=== PATIENT | female | born 1985 | race Caucasian/White ===

== ENCOUNTER 2018-01-16 18:09 | Emergency (ER) | payer SELFPAY ==
[~2018-01-16] VITALS: Ht 162.6 cm; Wt 54.0 kg
[2018-01-16 18:52] VITALS: BP 104/57
[2018-01-16 19:33] LABS: Basophils # (auto) 0 uL; Basophils % (auto) 0.6 % (0.0-2.0); Eosinophils # (auto) 0.1 uL; Hematocrit 45.6 % (36.0-46.0); Hemoglobin 15.4 g/dL (12.2-16.2); Lymphocytes # (auto) 2.3 uL; Lymphocytes % (auto) 43.2 % (10.0-50.0); Mean Corpuscular Hgb Conc. 33.7 g/dL (32.0-36.0); Mean Corpuscular Volume 92.1 fL (80.0-100.0); Monocytes # (auto) 0.4 uL; Monocytes % (auto) 7.1 % (0.0-12.0); Neutrophils # (auto) 2.5 uL; Neutrophils % (auto) 48.1 % (37.0-80.0); Nucleated Red Blood Cells % 0.2 %; Platelet Count (auto) 245 10^3/uL (140-450); Red Blood Cells 4.95 10^6/uL (4.0-5.20); Red Cell Distribution Width 13.5 % (11.8-14.3); White Blood Cell 5.3 10^3/uL (4.4-10.8)
[2018-01-16 19:56] LABS: Alanine Aminotransferase 14 U/L (13-56); Albumin 4.7 g/dL (3.4-5.0); Alkaline Phosphatase 67 U/L (45-117); Anion Gap 10 (5-15); Aspartate Aminotransferase 10 U/L (15-37); Bilirubin, Total 0.4 mg/dL (0.2-1.0); Blood Urea Nitrogen 11 mg/dL (7-18); Calcium 9.1 mg/dL (8.5-10.1); Carbon Dioxide 25 mmol/L (21-32); Chloride 103 mmol/L (98-107); GFR African American 92 mL/min; GFR Non-African American 76 mL/min; Glucose 89 mg/dL (74-106); Potassium 3.7 mmol/L (3.5-5.1); Sodium 138 mmol/L (136-145); Total Protein 8.8 g/dL (6.4-8.2)
== END 2018-01-17 01:21 | disposition left against medical advice (07) ==
LOC: ER 18:09
DX: R55 Syncope and collapse (principal); Z53.21 Procedure and treatment not carried out due to patient leaving prior to being seen by health care provider
CPT/HCPCS: 36415; 80053; 81001; 81025; 82962; 84484; 85025; 93005

== ENCOUNTER 2018-09-13 14:19 | Emergency (ER) | payer MEDICAID, OTHER ==
[~2018-09-13] VITALS: Ht 162.6 cm; Wt 54.4 kg
[2018-09-13 15:34] VITALS: BP 115/66
== END 2018-09-13 17:01 | disposition home or self-care (01) ==
LOC: ER 14:19
DX: F41.1 Generalized anxiety disorder (principal); Z88.0 Allergy status to penicillin; Z88.6 Allergy status to analgesic agent
CPT/HCPCS: 71046; 93005

== ENCOUNTER 2019-06-16 15:04 | Emergency (ER) | payer MEDICAID ==
[~2019-06-16] VITALS: Ht 162.6 cm; Wt 52.2 kg
[2019-06-16] MEDS ORDERED: KETOROLAC TROMETH 30 MG/ML 1ML VIAL IV ONE (15:45)
[2019-06-16] MEDS ORDERED: METOCLOPRAMIDE HCL 5MG/ml INJ 2ml VIAL IV ONE (15:45)
[2019-06-16] MEDS ORDERED: ACETAMINOPHEN 500 MG TAB PO ONE ×2 (16:15)
[2019-06-16 16:17] LABS: Basophils # (auto) 0.1 uL; Basophils % (auto) 0.8 % (0.0-2.0); Eosinophils # (auto) 0.1 uL; Eosinophils % (auto) 1.2 % (0.0-7.0); Hematocrit 46.2 % (36.0-46.0); Hemoglobin 15.4 g/dL (12.2-16.2); Lymphocytes # (auto) 1.8 uL; Lymphocytes % (auto) 24.9 % (10.0-50.0); Mean Corpuscular Hemoglobin 30.9 pg (28.0-32.0); Mean Corpuscular Hgb Conc. 33.4 g/dL (32.0-36.0); Mean Corpuscular Volume 92.6 fL (80.0-100.0); Monocytes # (auto) 0.5 uL; Monocytes % (auto) 6.4 % (0.0-12.0); Neutrophils # (auto) 4.7 uL; Neutrophils % (auto) 66.7 % (37.0-80.0); Nucleated Red Blood Cells % 0.1 %; Platelet Count (auto) 203 10^3/uL (140-450); Red Blood Cells 4.99 10^6/uL (4.0-5.20); Red Cell Distribution Width 13.7 % (11.8-14.3)
[2019-06-16 16:38] LABS: Calcium 8.5 mg/dL (8.5-10.1); Magnesium 2.2 mg/dL (1.6-2.6); Potassium 3.3 mmol/L (3.5-5.1)
[2019-06-16 16:42] LABS: BUN/Creatinine Ratio 6.2; Bilirubin, Total 0.5 mg/dL (0.2-1.0); Total Protein 7.5 g/dL (6.4-8.2)
[2019-06-16 16:53] LABS: Urine WBC None Seen /hpf (0 - 5)
[2019-06-16 16:59] LABS: Urine Bacteria FEW /hpf (None Seen); Urine Blood Negative /uL (Negative); Urine Mucus FEW (None Seen); Urine Specific Gravity 1.007 (1.001-1.035)
[2019-06-16 18:12] VITALS: BP 107/67
== END 2019-06-16 18:12 | disposition home or self-care (01) ==
LOC: EDBD 15:04 → ER 15:06
DX: R10.9 Unspecified abdominal pain (principal); G89.29 Other chronic pain; M54.9 Dorsalgia, unspecified; L93.0 Discoid lupus erythematosus
CPT/HCPCS: 36415; 74176; 80053; 81001; 83735; 84702; 85025; 96374; 96375; 99284; J1885; J2765

== ENCOUNTER 2019-11-14 08:44 | Inpatient (IN) | payer MEDICAID, SELFPAY ==
[~2019-11-14] VITALS: Ht 162.6 cm; Wt 57.0 kg
[2019-11-14 10:47] LABS: Basophils # (auto) 0 10 ^3/uL (0-0.2); Basophils % (auto) 0.2 % (0.0-2.0); Eosinophils # (auto) 0.2 10 ^3/uL (0-0.8); Eosinophils % (auto) 3.8 % (0.0-7.0); Hematocrit 43.5 % (36.0-46.0); Hemoglobin 15.1 g/dL (12.2-16.2); Lymphocytes % (auto) 18.8 % (10.0-50.0); Mean Corpuscular Hemoglobin 31.5 pg (28.0-32.0); Mean Corpuscular Hgb Conc. 34.7 g/dL (32.0-36.0); Mean Corpuscular Volume 90.8 fL (80.0-100.0); Monocytes # (auto) 0.5 10 ^3/uL (0-1.3); Monocytes % (auto) 9.4 % (0.0-12.0); Neutrophils # (auto) 3.7 10 ^3/uL (1.6-8.6); Neutrophils % (auto) 67.8 % (37.0-80.0); Nucleated Red Blood Cells % 0.3 %; Platelet Count (auto) 228 10^3/uL (140-450); White Blood Cell 5.4 10^3/uL (4.4-10.8)
[2019-11-14 10:59] LABS: Albumin 3.8 g/dL (3.4-5.0); Calcium 9.7 mg/dL (8.5-10.1); Potassium 3.9 mmol/L (3.5-5.1)
[2019-11-14 11:02] LABS: BUN/Creatinine Ratio 11.4; Bilirubin, Total 0.8 mg/dL (0.2-1.0); Total Protein 8.2 g/dL (6.4-8.2)
[2019-11-14] MEDS ORDERED: AZITHROMYCIN 500MG/ 250ML 250 ML IV ONE (11:30)
[2019-11-14] MEDS ORDERED: OSELTAMIVIR 75 MG CAP PO ONE (11:30)
[2019-11-14 12:32] LABS: Urine Bacteria NONE SEEN /hpf (None Seen); Urine Blood Negative /uL (Negative); Urine Specific Gravity 1.004 (1.001-1.035); Urine WBC <1 /hpf (0 - 5)
[2019-11-14] MEDS ORDERED: ALBUTEROL SULF HFA 90MCG INH 200DOSE IN PRN (15:00)
[2019-11-14] MEDS ORDERED: ACETAMINOPHEN 500 MG TAB PO PRN (15:00)
[2019-11-14] MEDS ORDERED: NITROGLYCERIN 0.4 MG SL TAB SL PRN (15:00)
[2019-11-14] MEDS ORDERED: MORPHINE SULF INJ 2 MG/ML SYRINGE 1ML IV PRN (15:00)
[2019-11-14] MEDS ORDERED: ONDANSETRON HCL 4 MG/2 ML VIAL IV PRN (15:15)
[2019-11-14] MEDS ORDERED: DOCUSATE SOD 100 MG CAP PO PRN (15:15)
[2019-11-14] MEDS: CHOLECALCIFEROL (VITD3) 1,000IU=25mCg TAB PO SCH (15:45)
[2019-11-14] MEDS: ASCORBIC ACID 500 MG TAB PO SCH (15:45)
[2019-11-14] MEDS: ZINC SULFATE 220mg CAP or TAB PO SCH (15:45)
[2019-11-14 16:29] LABS: Magnesium 2.5 mg/dL (1.6-2.6)
[2019-11-14 16:38] LABS: CRP High Sensitivity 9.67 mg/dL (< 0.3)
[2019-11-14] MEDS ORDERED: AMI25T (16:52)
[2019-11-14] MEDS ORDERED: QUET50TA25 (16:52)
[2019-11-14] MEDS ORDERED: PRA1C (16:56)
[2019-11-14] MEDS ORDERED: [UNRECOGNIZED DRUG - CODE] (16:56)
[2019-11-14] MEDS ORDERED: VORT10TA (16:56)
[2019-11-14] MEDS ORDERED: [UNRECOGNIZED DRUG - CODE] (16:56)
[2019-11-14] MEDS ORDERED: TIZA4TAB3 (16:56)
[2019-11-14] MEDS ORDERED: PREG75CA (16:56)
[2019-11-14] MEDS ORDERED: VORT1TAB (16:56)
[2019-11-14] MEDS ORDERED: CLON1TAB10 (16:56)
[2019-11-14] MEDS ORDERED: PRAZ1CAP48 (16:56)
[2019-11-14] MEDS ORDERED: CIP250T (16:56)
[2019-11-14] MEDS ORDERED: MORP1TAB12 (16:56)
[2019-11-14] MEDS: MORPHINE SULF INJ 2 MG/ML SYRINGE 1ML IV PRN (17:14)
[2019-11-14 20:54] VITALS: BP 96/60
[2019-11-14] MEDS: clonazePAM 0.5 MG TAB PO PRN (20:58)
[2019-11-14] MEDS: oxyCODONE ER 10 MG TAB PO SCH (20:59)
--- NOTE | 2019-11-14 22:00 | NUR ---
Respiratory note: PT ASSESSED FOR MDI TX. HR 92, RR 18, POX 99% ON 2L NC. NO SOB OR DISTRESS NOTED AT THIS TIME.
[2019-11-15] VITALS (7 sets, daily range): BP systolic 94–118; BP diastolic 54–82
[2019-11-15] MEDS: MORPHINE SULF INJ 2 MG/ML SYRINGE 1ML IV PRN ×2 (02:01→15:07)
--- NOTE | 2019-11-15 05:06 | NUR ---
PATIENT REQUESTED SIMPLE FACE MASK. PATIENT STATES SHE FEELS SHORT OF BREATH. PATIENTS OXYGEN SATURATION ON ROOM AIR IS CURRENTLY 96%, RR 18. NO VISIBLE SIGNS OF SOB OR DISTRESS NOTED. PATIENT STATES SHE "BREATHES THROUGH HER MOUTH" SO THE NASAL CANNULA DOES NOT "WORK" FOR HER. PATIENT PROVIDED SIMPLE MASK AND PLACED ON 6L.
[2019-11-15 06:52] LABS: Basophils # (auto) 0 10 ^3/uL (0-0.2); Basophils % (auto) 0.4 % (0.0-2.0); Eosinophils # (auto) 0.2 10 ^3/uL (0-0.8); Eosinophils % (auto) 4.9 % (0.0-7.0); Hematocrit 42.9 % (36.0-46.0); Hemoglobin 14.5 g/dL (12.2-16.2); Lymphocytes # (auto) 1.4 10 ^3/uL (0.4-5.4); Lymphocytes % (auto) 30.6 % (10.0-50.0); Mean Corpuscular Hemoglobin 31.3 pg (28.0-32.0); Mean Corpuscular Hgb Conc. 33.9 g/dL (32.0-36.0); Mean Corpuscular Volume 92.5 fL (80.0-100.0); Monocytes # (auto) 0.5 10 ^3/uL (0-1.3); Monocytes % (auto) 11.2 % (0.0-12.0); Neutrophils # (auto) 2.4 10 ^3/uL (1.6-8.6); Neutrophils % (auto) 52.9 % (37.0-80.0); Platelet Count (auto) 225 10^3/uL (140-450); Red Blood Cells 4.64 10^6/uL (4.0-5.20); Red Cell Distribution Width 13.2 % (11.8-14.3); White Blood Cell 4.5 10^3/uL (4.4-10.8)
[2019-11-15 07:07] LABS: Potassium 4.3 mmol/L (3.5-5.1)
[2019-11-15 07:15] LABS: Albumin 3.6 g/dL (3.4-5.0); Bilirubin, Total 0.5 mg/dL (0.2-1.0); Calcium 9.6 mg/dL (8.5-10.1); Total Protein 7.9 g/dL (6.4-8.2)
--- NOTE | 2019-11-15 07:25 | NUR ---
Opening Shift Note Assumed care of patient, awake and alert. Pt complaining of 7/10 pain. PT will be medicated per MAR. Instructed on POC and to call for assist PRN, will continue to monitor for changes Q1hr and PRN.
[2019-11-15] MEDS: ZINC SULFATE 220mg CAP or TAB PO SCH (09:19)
[2019-11-15] MEDS: oxyCODONE ER 10 MG TAB PO SCH ×2 (09:19→21:56)
[2019-11-15] MEDS: ASCORBIC ACID 500 MG TAB PO SCH (09:21)
[2019-11-15] MEDS: ENOXAPARIN SOD 40 MG/0.4 ML SYRINGE SC SCH ×2 (09:22→10:00)
[2019-11-15] MEDS ORDERED: AZITHROMYCIN DIHYD 500 MG VIAL IV SCH (10:00)
[2019-11-15] MEDS ORDERED: AZITHROMYCIN 500MG/ 250ML 250 ML IV SCH (10:00)
[2019-11-15] MEDS ORDERED: FAMOTIDINE 20 MG TAB PO SCH (10:00)
[2019-11-15] MEDS: CHOLECALCIFEROL (VITD3) 1,000IU=25mCg TAB PO SCH (11:40)
--- NOTE | 2019-11-15 15:23 | NUR ---
ROUNDING MD TAM AT BEDSIDE. ALL QUESTIONS AND CONCERNS ADDRESSED AT THIS TIME
[2019-11-15] MEDS ORDERED: Ensure HIGH Protein Chocolate 8oz Bottle PO SCH (18:00)
--- NOTE | 2019-11-15 20:00 | NUR ---
PATIENT CURRENTLY RESTING IN BED. SHE IS ON 5L NC. SHE IS SATTING AT 93%. NO CURRENT COMPLAINTS OF PAIN/FEVER. WILL CONTINUE TO MONITOR.
[2019-11-15] MEDS: clonazePAM 0.5 MG TAB PO PRN (21:14)
[2019-11-15] MEDS: ALBUTEROL SULF HFA 90MCG INH 200DOSE IN SCH (21:42)
--- NOTE | 2019-11-15 21:42 | NUR ---
RT NOTE MDI GIVEN BY MIREYA HOFFMAN WITHOUT INCIDENT. RT MADE SURE RN WAS FAMILIAR WITH THE PROPER ADMINISTRATION OF MDI.
[2019-11-16 00:54] VITALS: BP 116/75
[2019-11-16 04:44] VITALS: BP 102/56
--- NOTE | 2019-11-16 05:45 | NUR ---
RECEIVED CALL FROM CHARGE NURSE STATING PATIENT TEST IS NEGATIVE. TRANSFER PATIENT TO [facility] ONCE REPORT GIVEN.
--- NOTE | 2019-11-16 05:48 | NUR ---
REPORT GIVEN TO MIREYA MUNOZ
--- NOTE | 2019-11-16 06:09 | NUR ---
patient transferred to room 297B. Assumed care of patient, awake and alert. No S/S of distress/SOB or pain. Instructed on POC and to call for assist PRN, will continue to monitor for changes Q1hr and PRN. bed in low position and call light within reach.
[2019-11-16] MEDS: MORPHINE SULF INJ 2 MG/ML SYRINGE 1ML IV PRN (06:27)
[2019-11-16] MEDS: ALBUTEROL SULF HFA 90MCG INH 200DOSE IN SCH (06:27)
--- NOTE | 2019-11-16 06:27 | NUR ---
pain 7/10 to back. patient medicated per protocol.
--- NOTE | 2019-11-16 07:26 | NUR ---
REPORT GIVEN TO DAYSHIFT RN PATIENT DENIES SOB DISTRESS OR PAIN. MOTOR BUILDER WINDER INFORMED ME PATIENT IS REQUESTING TO BE DISCHARGED. PATIENT STATED " MY RESULTS CAME BACK NEGATIVE I WANT TO LEAVE." ENDORSED CARE TO DAYSHIFT MIREYA Cline
--- NOTE | 2019-11-16 07:45 | NUR ---
Opening Shift Note Assumed care of patient, awake and alert. No S/S of distress/SOB or pain. Instructed on POC and to call for assist PRN, will continue to monitor for changes Q1hr and PRN. Patient states that she wants to go home, she is feeling better and her COVID-19 is negative, that's what she wanted to know. Patient states that she does not need to wait for the doctor and if she go home and starts to feel worse she will return to the emergency room.
--- NOTE | 2019-11-16 09:30 | NUR ---
AMA Note JADON REINA states they want to leave the hospital Against Medical Advice (AMA). Patient encouraged to stay for further treatment/stabilization. Left VM for Dr. Fields notified of patient's wishes. Patient advised of the risks and benefits of leaving AMA. Patient verbalized understanding. Patient encouraged to return to the ER if symptoms do not improve or worsen.
[2019-11-16] MEDS ORDERED: AZITHROMYCIN 250 MG TAB PO SCH (10:00)
== END 2019-11-16 10:37 | disposition left against medical advice (07) | DRG 723 ==
LOC: ER 08:44 → TELE 08:45 → TELE-EAST 16:23 → TELE-WESTW 11-16 06:15 → WEST WING 11-16 10:36 → TELE-WESTW 11-16 10:37
PROVIDERS: ADMIT Nurse Practitioner Acute Care; ATTEND Hospitalist
DX: B34.9 Viral infection, unspecified (principal); J96.01 Acute respiratory failure with hypoxia; F17.210 Nicotine dependence, cigarettes, uncomplicated; F41.9 Anxiety disorder, unspecified; R50.9 Fever, unspecified; Z53.29 Procedure and treatment not carried out because of patient's decision for other reasons; G89.4 Chronic pain syndrome; F31.9 Bipolar disorder, unspecified; Z87.440 Personal history of urinary (tract) infections; Z90.49 Acquired absence of other specified parts of digestive tract; Z20.828 Contact with and (suspected) exposure to other viral communicable diseases
CPT/HCPCS: 36415; 71045; 80053; 81001; 82728; 83605; 83615; 83735; 84443; 85025; 85379; 86141; 87040; 87070; 87804; 87880; 93005; 94640; 96365; 96366; G0378